=== PATIENT | female | born 2005 | race Two or more races ===

== ENCOUNTER 2025-01-17 21:38 | Emergency (ER) | payer OTHER ==
[~2025-01-17] VITALS: Ht 160 cm; Wt 52.2 kg
[2025-01-17] MEDS ORDERED: DUPIXENT P200 MG/1.1 (21:41)
[2025-01-17] MEDS ORDERED: ONDANSETRON HCL 2 MG/ML VIAL IV STA (22:11)
[2025-01-17] MEDS ORDERED: METHYLPREDNISOLONE SOD SUCC 40 MG VIAL IV STA (22:15)
[2025-01-17] MEDS ORDERED: FAMOTIDINE/PF 20 MG/2 ML VIAL IV STA (22:15)
[2025-01-17] MEDS ORDERED: METHYLPREDNISOLONE SOD SUCC 40 MG VIAL ONE (22:37)
[2025-01-17] MEDS ORDERED: ONDANSETRON HCL 2 MG/ML VIAL ONE (22:37)
[2025-01-17] MEDS ORDERED: FAMOTIDINE/PF 20 MG/2 ML VIAL ONE (22:38)
== END 2025-01-17 23:03 | disposition home or self-care (01) ==
LOC: ER 21:38 → EMR PED 21:38
DX: K29.60 Other gastritis without bleeding (principal); M30.1 Polyarteritis with lung involvement [Churg-Strauss]